=== PATIENT | male | born 1950 | race Caucasian/White ===

== ENCOUNTER → 2023-04-06 | Outpatient (CLI) | payer MEDICARE | LOC: M PLAIMG 13:34 | PROVIDERS: ATTEND Physician Assistant | DX: R91.8 Other nonspecific abnormal finding of lung field (principal) ==

== ENCOUNTER → 2023-06-06 | Outpatient (CLI) | payer MEDICARE ==
[~2023-06-06] MED LIST: METHACHOLINE KIT INH ONE
== END ==
LOC: M CARPUL 09:30
PROVIDERS: ATTEND Physician Assistant
DX: R06.02 Shortness of breath (principal)
CPT/HCPCS: 94070; 95070; J7674